=== PATIENT | male | born 1945 | race Caucasian/White ===

== ENCOUNTER → 2016-11-27 | Outpatient (CLI) | payer OTHER, BC ==
[~2016-11-27] MED LIST: ADULTS 50+ MUL1 EACH PO; ASPIR-LOW81 MG PO; ATORVASTATIN CA40 MG PO; CALCIUM 500 +1 EAC5 PO; CLORAZEPATE DI7.5 M1 PO; CO Q-10100 MG PO; COZAAR 50 MG TA50 M2 PO; FISH OIL 1,001000 M2 PO; FLOMAX0.4 MG PO; KEFLEX500 MG PO; LOMOTIL TABLET1 EACH PO; NORCO 5-325 TA1 EACH PO; NORVASC5 MG PO; VITAMIN B-1100 M1 PO; VITAMIN D2000 UNIT PO; VITAMINC500 PO; WELLBUTRIN SR150 MG PO
--- NOTE | ~2016-11-27 | EKG ---
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
== END | disposition home or self-care (01) ==
LOC: LITH 05:39
DX: N20.1 Calculus of ureter (principal); I10 Essential (primary) hypertension; E78.00 Pure hypercholesterolemia, unspecified; G47.33 Obstructive sleep apnea (adult) (pediatric); F32.9 Major depressive disorder, single episode, unspecified; Z98.890 Other specified postprocedural states
CPT/HCPCS: 52317; 52318